=== PATIENT | male | born 1955 | race Caucasian/White ===

== ENCOUNTER 2020-01-15 13:16 | Emergency (ER) | payer MEDICARE ==
[~2020-01-15] VITALS: Ht 185.4 cm; Wt 104.3 kg
[2020-01-15] MEDS ORDERED: ALEVE220 M1 PO (13:24)
[2020-01-15] MEDS ORDERED: ZPAK PO (14:43)
[2020-01-15] MEDS ORDERED: PREDNISONE 20 M20 M1 PO (14:43)
[2020-01-15 15:01] VITALS: BP 146/72
== END 2020-01-15 15:01 | disposition home or self-care (01) ==
LOC: M.ERS 13:16
DX: U07.1 COVID-19 (principal)